=== PATIENT | male | born 1965 | race Caucasian/White ===

== ENCOUNTER 2017-07-15 15:53 | Emergency (ER) | payer MEDICARE, MEDICAID ==
[2017-07-15] MEDS ORDERED: ONDANSETRON HCL INJ/PF 4 MG/2 ML SDV IV ONE (16:15)
--- NOTE | 2017-07-15 16:48 | ER Document Report ---
ED General - General TRAVEL OUTSIDE OF THE [place] IN LAST 30 DAYS: No <MATT WILLIS - Last Filed: 07/15/17 19:15> <DINO PRASAD - Last Filed: 07/16/17 02:49> - General Chief Complaint: ETOH Abuse Stated Complaint: POSSIBLE ETOH Time Seen by Provider: 07/15/17 15:59 - HPI Notes: Patient is a 51-year-old male with a history of alcohol abuse and dependency who presents to the ED complaining of nausea/vomiting 1 day along with chronic pain. Pt also c/o body pain from his chest to his legs, but he usually has this pain which is why he was in pain management in the past. Pt c/o a headache s/p fall hitting his forehead. Patient states that he has been drinking vodka that is 100 proof and has drank more than 1/5. Patient was found sleeping on his cooler outside of the [employer]. EMS was called and he was brought to the ED. Patient states that he is on Belbuca for his chronic pain. Patient also has a history of diabetes which he takes metformin for. Denies any headache, fever, neck pain/stiffness, URI, sore throat, palpitations, syncope, shortness of breath, wheeze, dyspnea, urinary retention, dysuria, hematuria, loss of control of bowel or bladder, numbness/tingling, saddle anesthesia, muscle paralysis/weakness, or rash. Patient denies any smoking or drug use. Pt has a h/o seizures in the past. about 3 hours later: Pt is more communicative and states that he called EMS because he had blood in his vomit and has been having bloody stools x1-2 days. (MATT WILLIS) - Related Data Allergies/Adverse Reactions: Sulfa (Sulfonamide Antibiotics) Allergy (Severe, Verified 07/09/16 09:30) Past Medical History - Social History Smoking Status: Never Smoker Family History: COPD - Past Medical History Cardiac Medical History: Reports: Hx DVT - Possible DVT, right lower extremity, 1988; took Coumadin for several months, Hx Hypercholesterolemia, Hx Hypertension Denies: Hx Congestive Heart Failure, Hx Heart Attack, Hx Pulmonary Embolism Pulmonary Medical History: Reports: Hx Asthma - Childhood; has not bothered him in years. Denies: Hx COPD Neurological Medical History: Reports: Hx Cerebrovascular Accident, Hx Seizures - From alcohol withdrawal Endocrine Medical History: Reports: Hx Diabetes Mellitus Type 2. Denies: Hx Diabetes Mellitus Type 1, Hx Hyperthyroidism, Hx Hypothyroidism GI Medical History: Reports: Hx Gastroesophageal Reflux Disease, Hx Ulcer - Alcoholic. Denies: Hx Cirrhosis, Hx Hepatitis Musculoskeltal Medical History: Reports Hx Arthritis Skin Medical History: Denies Hx Eczema, Denies Hx Psoriasis Psychiatric Medical History: Reports: Hx Depression Infectious Medical History: Denies: Hx Hepatitis Past Surgical History: Reports: Hx Orthopedic Surgery - R knee R foot R wrist., Hx Vascular Surgery - Vein stripping of his right leg. - Immunizations Hx Diphtheria, Pertussis, Tetanus Vaccination: Yes <MATT WILLIS - Last Filed: 07/15/17 19:15> Review of Systems <MATT WILLIS - Last Filed: 07/15/17 19:15> <DINO PRASAD - Last Filed: 07/16/17 02:49> - Review of Systems Notes: REVIEW OF SYSTEMS: CONSTITUTIONAL : Denies fever, chills, or sweats. Denies recent illness. EENT: Denies eye, ear, throat, or mouth pain or symptoms. Denies nasal or sinus congestion or discharge. Denies throat, tongue, or mouth swelling or difficulty swallowing. CARDIOVASCULAR: Denies palpitations or racing or irregular heart beat. Denies ankle edema. RESPIRATORY: Denies shortness of breath, difficulty breathing, or wheezing. GASTROINTESTINAL: see hpi GENITOURINARY: Denies difficulty urinating, painful urination, burning, frequency, blood in urine, or discharge. MUSCULOSKELETAL: chronic see hpi SKIN: Denies rash, lesions or sores. HEMATOLOGIC : Denies easy bruising or bleeding. LYMPHATIC: Denies swollen, enlarged glands. NEUROLOGICAL: Denies confusion or altered mental status. Denies passing out or loss of consciousness. Denies dizziness or lightheadedness. Denies headache. Denies weakness or paralysis or loss of use of either side. Denies problems with gait or speech. Denies sensory loss, numbness, or tingling. Denies seizures. PSYCHIATRIC: Denies anxiety or stress. Denies depression, suicidal ideation, or homicidal ideation. ALL OTHER SYSTEMS REVIEWED AND NEGATIVE. Dictation was performed using [employer] voice recognition software (MATT WILLIS) Physical Exam <MATT WILLIS - Last Filed: 07/15/17 19:15> <DINO PRASAD - Last Filed: 07/16/17 02:49> - Vital signs Vitals: Temp Resp 97.6 F 18 07/15/17 16:00 07/15/17 16:00 Notes: PHYSICAL EXAMINATION: GENERAL: Well-appearing, well-nourished and in no acute distress. A&Ox3 HEAD: Atraumatic, normocephalic. Non-tender. No masters sign. EYES: Pupils equal round and reactive to light, extraocular movements intact, sclera anicteric, conjunctiva are normal. ENT: EAC clear b/l. TM's intact b/l without erythema, fluid, or perforation. Nares patent and without discharge. oropharynx clear without exudates. No tonsilar hypertrophy or erythema. Moist mucous membranes. No sinus tenderness. Uvula midline. No palatine shift. No tongue protrusion. NECK: Normal range of motion, supple without lymphadenopathy. No rigidity/ meningismus. No midline tenderness. Spurling neg. LUNGS: Breath sounds clear to auscultation bilaterally and equal. No wheezes rales or rhonchi. HEART: Regular rate and rhythm without murmurs, rubs, gallops. ABDOMEN: Soft, nondistended abdomen. No guarding, no rebound. No masses appreciated. Normal bowel sounds present. No CVA tenderness bilaterally. Generalized mild tenderness. Musculoskeletal: Ext b/l: FROM to passive/active. Strength 5+/5. No focal deficits noted. Extremities: Trace pitting edema b/l. Peripheral pulses 2+. Capillary refill less than 3 seconds. NEUROLOGICAL: MMSE intact. Cranial nerves grossly intact. slightly slurred speech, normal gait. Normal sensory, motor exams PSYCH: pt appears drunk, but is coherent and responds appropriately when asked. SKIN: Warm, Dry, normal turgor, no rashes or lesions noted. (MATT WILLIS) Course - Laboratory Result Diagrams: 07/15/17 17:15 07/15/17 17:15 <MATT WILLIS - Last Filed: 07/15/17 19:15> - Laboratory Result Diagrams: 07/15/17 17:15 07/15/17 17:15 <DINO PRASAD - Last Filed: 07/16/17 02:49> - Re-evaluation Re-evalutation: 07/15/17 19:[address] Flwoers who is in agreement with discharge/plan pending response to treatment: Patient is an afebrile, well-hydrated, 51yo male who presents with ETOH intoxication with chronic alcohol dependency. Vitals are stable. PE otherwise unremarkable for any focal neurological deficits at this time. CT scan of the head/neck unremarkable. CXR unremarkable. CBC at baseline. CMP at baseline. CK and CKMB mildly elevated, but most likely secondarily to the ETOH. 1st Trop/ EKG neg. INR/Ammonia unremarkable. UA, venous gas, urine drug screen, and 2nd cardiacs pending. With unremarkable labs (pending above) and decreased blood ETOH with improvement in mentation/behavior, we will discharge to home as long as he does not seem/appear intoxicated. Strict return precautions and advise recheck with his PCM in 2-3 days. Return to the ED with any worsening/ concerning symptoms. Introduced Dino Prasad PA-C at bedside who will continue care and re-evaluate patient for disposition once labs return. 07/15/17 19:13 Pt was coming around and is more communicative. Pt now admitting to blood in stool/vomit. Dino will continue care and further eval. (MATT WILLIS) I did perform a rectal exam on patient, no bleeding on exam, Hemoccult is negative. No evidence of GI bleed. Soft benign abdomen. Patient is actually quite well-appearing now, he has sobered up to the point that he is conversational and cooperative. Pending results unremarkable with negative drug screen and negative cardiac enzyme. Vital signs unremarkable. Patient tolerating p.o. Given Pepcid here and dose pack of Zofran. Patient asking to leave, states he has a ride home. Patient was picked up by his friend. (DINO PRASAD) - Vital Signs Vital signs: Temp Pulse Resp BP Pulse Ox 98.3 F 87 16 150/85 H 98 07/15/17 22:09 07/15/17 22:09 07/15/17 22:09 07/15/17 22:09 07/15/17 22:09 - Laboratory Laboratory results interpreted by me: 07/15/17 07/15/17 07/15/17 17:15 17:15 17:15 Hgb 12.6 L MCV 77 L MCH 25.1 L RDW 17.8 H Sodium 145.3 H Carbon Dioxide 21 L Glucose 144 H AST 79 H ALT 83 H Creatine Kinase 537 H CK-MB (CK-2) 5.89 H Total Protein 8.5 H Urine Protein Serum Alcohol 07/15/17 07/15/17 17:15 18:23 Hgb MCV MCH RDW Sodium Carbon Dioxide Glucose AST ALT Creatine Kinase CK-MB (CK-2) Total Protein Urine Protein 100 H Serum Alcohol 355 H* Discharge <MATT WILLIS - Last Filed: 07/15/17 19:15> <DINO PRASAD - Last Filed: 07/16/17 02:49> - Discharge Clinical Impression: Alcohol intoxication Qualifiers: Complication of substance-induced condition: uncomplicated Qualified Code(s): F10.920 - Alcohol use, unspecified with intoxication, uncomplicated Condition: Stable Disposition: HOME, SELF-CARE Instructions: Acute Alcohol Intoxication ([facility]), Chronic Alcoholism ([facility]) Additional Instructions: Maintain adequate water intake and eat a healthy diet (low carb/sugar/sodium) Seek counseling for your alcohol abuse (see A referral for detox) Monitor for any worsening symptoms Schedule a follow-up with your PCM in 2-3 days. Return to the ED with any worsening symptoms and/or development of fever, headache, changes in your mentation/speech/behavior/vision, chest pain, palpitations, syncope, shortness of breath, trouble breathing, abdominal pain, n /v/d, blood in vomit/stool/urine, loss of control of bowel/bladder, urinary retention, muscle weakness/paralysis, numbness/tingling, or other worsening symptoms that are concerning to you. Forms: Elevated Blood Pressure Referrals: MAGDIEL JOHNSON MD [Primary Care Provider] - 07/17/17 [facility] [Provider Group] - Follow up as needed
--- NOTE | 2017-07-15 16:52 | RADIOLOGY REPORT (SQ) ---
EXAM DESCRIPTION: CHEST SINGLE VIEW COMPLETED DATE/TIME: 07/15/2017 4:45 pm REASON FOR STUDY: cough COMPARISON: 09/26/2016 EXAM PARAMETERS: NUMBER OF VIEWS: One view. TECHNIQUE: Single frontal radiographic view of the chest acquired. RADIATION DOSE: NA LIMITATIONS: Low lung volumes. FINDINGS: LUNGS AND PLEURA: No opacities, masses or pneumothorax. No pleural effusion. MEDIASTINUM AND HILAR STRUCTURES: No masses. Contour normal. HEART AND VASCULAR STRUCTURES: Stable in appearance. BONES: No acute findings. HARDWARE: None in the chest. OTHER: No other significant finding. IMPRESSION: Negative chest allowing for low lung volumes. TECHNICAL DOCUMENTATION: JOB ID: [id number]
[2017-07-15 17:26] LABS: ABSOLUTE BASOPHILS # (AUTO) 0.1 10^3/uL (0.0-0.2); ABSOLUTE EOSINOPHILS # (AUTO) 0.1 10^3/uL (0.0-0.6); ABSOLUTE LYMPHOCYTES (AUTO) 1.6 10^3/uL (0.5-4.7); ABSOLUTE MONOCYTES (AUTO) 0.5 10^3/uL (0.1-1.4); ABSOLUTE NEUT (AUTO) 2.6 10^3/uL (1.7-8.2); BASOPHILS % (AUTO) 1.2 % (0-2); EOSINOPHILS % (AUTO) 1.8 % (0-6); HEMATOCRIT 38.5 % (37.9-51.0); HEMOGLOBIN 12.6 g/dL (13.5-17.0); HGB HCT DIFFERENCE -0.7; LYMPHOCYTES % (AUTO) 32.5 % (13-45); MEAN CORPUSCULAR HEMOGLOBIN 25.1 pg (27.0-33.4); MEAN CORPUSCULAR HGB CONC 32.7 g/dL (32.0-36.0); MEAN CORPUSCULAR VOLUME 77 fl (80-97); RED BLOOD COUNT 5.01 10^6/uL (4.35-5.55); RED CELL DISTRIBUTION WIDTH 17.8 % (11.5-14.0); SEGMENTED NEUTROPHILS % (AUTO) 53.5 % (42-78); WHITE BLOOD COUNT 4.8 10^3/uL (4.0-10.5)
[2017-07-15 17:42] LABS: ALANINE AMINOTRANSFERASE 83 U/L (21-72); ALBUMIN 4.7 g/dL (3.5-5.0); ALKALINE PHOSPHATASE 86 U/L (38-126); ANION GAP 19 (5-19); ASPARTATE AMINO TRANSFERASE 79 U/L (17-59); BILIRUBIN,DIRECT 0.4 mg/dL (0.0-0.4); BILIRUBIN,TOTAL 0.4 mg/dL (0.2-1.3); BLOOD UREA NITROGEN 8 mg/dL (7-20); CALCIUM 9.4 mg/dL (8.4-10.2); CARBON DIOXIDE 21 mmol/L (22-30); CHLORIDE 105 mmol/L (98-107); CREATINE KINASE 537 U/L (55-170); CREATININE RESULT 0.72 mg/dL (0.52-1.25); GLUCOSE 144 mg/dL (75-110); MAGNESIUM 1.6 mg/dL (1.6-2.3); POTASSIUM 4.6 mmol/L (3.6-5.0); SODIUM 145.3 mmol/L (137-145); TOTAL PROTEIN 8.5 g/dL (6.3-8.2)
[2017-07-15 17:53] LABS: CREATINE KINASE MB 5.89 ng/mL (<4.55)
[2017-07-15 17:54] LABS: TROPONIN I < 0.012 ng/mL
--- NOTE | 2017-07-15 17:55 | RADIOLOGY REPORT (SQ) ---
EXAM DESCRIPTION: CT CERVICAL SPINE WITHOUT COMPLETED DATE/TIME: 07/15/2017 5:35 pm REASON FOR STUDY: fall, ETOH intox COMPARISON: 07/19/2016. TECHNIQUE: Axial images acquired through the cervical spine without intravenous contrast. Images re viewed with lung, soft tissue and bone windows. Reconstructed coronal and sagittal MPR images review ed. Images stored on PACS. All CT scanners at this facility use dose modulation, iterative reconstruction, and/or weight based d osing when appropriate to reduce radiation dose to as low as reasonably achievable (ALARA). [facility]: Dose Right [facility]: CareDose [facility]: Dose Right [facility]: Teradose 4D [facility]: [employer] RADIATION DOSE: Up-to-date CT equipment and radiation dose reduction techniques were employed. CTDIv ol: 33.4 mGy. DLP: 781 mGy-cm. mGy. LIMITATIONS: None. FINDINGS: ALIGNMENT: Anatomic. MINERALIZATION: Normal. VERTEBRAL BODIES: No fractures or dislocation. DISCS: Multilevel disc space narrowing with osteophytes. FACETS, LATERAL MASSES, POSTERIOR ELEMENTS: Facet arthropathy. No fractures. No dislocation. No ac clarence findings. HARDWARE: None in the spine. VISUALIZED RIBS: No fractures. LUNG APICES AND SOFT TISSUES: No significant or acute findings. OTHER: No other significant finding. IMPRESSION: CHRONIC DEGENERATIVE CHANGES. NO ACUTE FINDINGS. TECHNICAL DOCUMENTATION: JOB ID: [id number] Quality ID # [id number]: Final reports with documentation of one or more dose reduction techniques (e.g., Au tomated exposure control, adjustment of the mA and/or kV according to patient size, use of iterative reconstruction technique) 2010 [employer]- All Rights Reserved
--- NOTE | 2017-07-15 17:56 | RADIOLOGY REPORT (SQ) ---
EXAM DESCRIPTION: CT HEAD WITHOUT COMPLETED DATE/TIME: 07/15/2017 5:33 pm REASON FOR STUDY: fall, ETOH intox COMPARISON: 09/03/2016. TECHNIQUE: Axial images acquired through the brain without intravenous contrast. Images reviewed wi th bone, brain and subdural windows. Images stored on PACS. All CT scanners at this facility use dose modulation, iterative reconstruction, and/or weight based d osing when appropriate to reduce radiation dose to as low as reasonably achievable (ALARA). [facility]: Dose Right [facility]: CareDose [facility]: Dose Right [facility]: Teradose 4D [facility]: [employer] RADIATION DOSE: Up-to-date CT equipment and radiation dose reduction techniques were employed. CTDIv ol: 64.6 mGy. DLP: 1163 mGy-cm. mGy. LIMITATIONS: None. FINDINGS: VENTRICLES: Prominent. CEREBRUM: No masses. No hemorrhage. No midline shift. Areas of low density in the white matter mos t likely due to chronic micro-vascular ischemic change. No evidence for acute infarction. CEREBELLUM: No masses. No hemorrhage. No alteration of density. No evidence for acute infarction. EXTRAAXIAL SPACES: Mild age-related involutional change. No fluid collections. No masses. ORBITS AND GLOBE: No intra- or extraconal masses. Normal contour of globe without masses. CALVARIUM: No fracture. PARANASAL SINUSES: No fluid or mucosal thickening. SOFT TISSUES: No mass or hematoma. OTHER: No other significant finding. IMPRESSION: MILD CHRONIC CHANGES OF ATROPHY AND MICROVASCULAR ISCHEMIA. NO ACUTE PROCESS. TECHNICAL DOCUMENTATION: JOB ID: [id number] Quality ID # [id number]: Final reports with documentation of one or more dose reduction techniques (e.g., Au tomated exposure control, adjustment of the mA and/or kV according to patient size, use of iterative reconstruction technique) 2010 [employer]- All Rights Reserved
[2017-07-15] MEDS: NORMAL SALINE 1000 ML 1,000 ML IV PRN ×2 (17:59→18:45)
[2017-07-15 19:09] LABS: PROTHROMBIN TIME 13.4 SEC (11.4-15.4)
--- NOTE | 2017-07-15 19:15 | EKG REPORT ---
SEVERITY:- ABNORMAL ECG - SINUS RHYTHM NONSPECIFIC INTRAVENTRICULAR CONDUCTION DELAY : Confirmed by: Sandro Hager MD 15-Jul-2017 19:14:25
[2017-07-15 19:44] LABS: APPEARANCE,URINE CLEAR; BILIRUBIN,URINE NEGATIVE (NEGATIVE); GLUCOSE, URINE NEGATIVE (NEGATIVE); KETONES,URINE NEGATIVE (NEGATIVE); LEUKOCYTE ESTERASE,URINE NEGATIVE (NEGATIVE); NITRITE,URINE NEGATIVE (NEGATIVE); PROTEIN,URINE 100 mg/dL (NEGATIVE); URINE SPECIFIC GRAVITY 1.005; UROBILINOGEN,URINE NEGATIVE mg/dL (<2.0)
[2017-07-15 19:58] LABS: URINE BARBITURATES SCREEN NEGATIVE; URINE METHADONE SCREEN NEGATIVE; URINE OPIATES LOW NEGATIVE; URINE PHENCYCLIDINE SCREEN NEGATIVE
[2017-07-15] MEDS ORDERED: FAMOTIDINE 20 MG TABLET PO ONE (21:23)
[2017-07-15] MEDS ORDERED: ONDANSETRON ODT 4 MG TAB (6 TAB/DSPK) PO PRN (21:36)
[2017-07-15 22:10] VITALS: BP 150/85
== END 2017-07-15 22:29 | disposition home or self-care (01) ==
LOC: ER 15:53
DX: F10.920 Alcohol use, unspecified with intoxication, uncomplicated (principal); R11.2 Nausea with vomiting, unspecified; G89.29 Other chronic pain; M79.1 Myalgia; R51 Headache; W19.XXXA Unspecified fall, initial encounter; E11.9 Type 2 diabetes mellitus without complications; K21.9 Gastro-esophageal reflux disease without esophagitis; Z86.718 Personal history of other venous thrombosis and embolism; Z86.73 Personal history of transient ischemic attack (TIA), and cerebral infarction without residual deficits
CPT/HCPCS: 93005; 99285; 96361; 96374; 36415; 82553; 80307 ×2; 82140; 82550; 83735; 85025; 85610; 82272; 80053; 81001; 84484; 71010; 70450; 72125; 93010; A9270; J2405; J7030

== ENCOUNTER 2017-07-16 00:08 | Emergency (ER) | payer MEDICARE, MEDICAID ==
[2017-07-16] MEDS ORDERED: ONDANSETRON HCL INJ/PF 4 MG/2 ML SDV IV ONE (01:37)
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
[2017-07-16 02:23] LABS: ABSOLUTE EOSINOPHILS # (AUTO) 0.1 10^3/uL (0.0-0.6); ABSOLUTE LYMPHOCYTES (AUTO) 1.3 10^3/uL (0.5-4.7); ABSOLUTE MONOCYTES (AUTO) 0.7 10^3/uL (0.1-1.4); ABSOLUTE NEUT (AUTO) 3.5 10^3/uL (1.7-8.2); BASOPHILS % (AUTO) 0.8 % (0-2); EOSINOPHILS % (AUTO) 1.4 % (0-6); HEMATOCRIT 37.3 % (37.9-51.0); HEMOGLOBIN 11.7 g/dL (13.5-17.0); HGB HCT DIFFERENCE -2.2; LYMPHOCYTES % (AUTO) 22.8 % (13-45); MEAN CORPUSCULAR HEMOGLOBIN 24.4 pg (27.0-33.4); MEAN CORPUSCULAR HGB CONC 31.2 g/dL (32.0-36.0); MEAN CORPUSCULAR VOLUME 78 fl (80-97); RED BLOOD COUNT 4.78 10^6/uL (4.35-5.55); RED CELL DISTRIBUTION WIDTH 17.9 % (11.5-14.0); WHITE BLOOD COUNT 5.5 10^3/uL (4.0-10.5)
[2017-07-16 02:38] LABS: ALANINE AMINOTRANSFERASE 76 U/L (21-72); ALBUMIN 4.3 g/dL (3.5-5.0); ALCOHOL 182 mg/dL (NONE DETECTED); ALKALINE PHOSPHATASE 69 U/L (38-126); ANION GAP 16 (5-19); ASPARTATE AMINO TRANSFERASE 58 U/L (17-59); BILIRUBIN,DIRECT 0.4 mg/dL (0.0-0.4); BILIRUBIN,TOTAL 0.5 mg/dL (0.2-1.3); BLOOD UREA NITROGEN 9 mg/dL (7-20); CALCIUM 8.7 mg/dL (8.4-10.2); CARBON DIOXIDE 25 mmol/L (22-30); CHLORIDE 103 mmol/L (98-107); CREATININE RESULT 0.86 mg/dL (0.52-1.25); GLUCOSE 152 mg/dL (75-110); POTASSIUM 4.6 mmol/L (3.6-5.0); SODIUM 143.7 mmol/L (137-145); TOTAL PROTEIN 7.8 g/dL (6.3-8.2)
[2017-07-16] MEDS ORDERED: LORAZEPAM 1 MG TABLET PO ONE ×2 (05:30→13:07)
--- NOTE | 2017-07-16 07:57 | EKG REPORT ---
SEVERITY:- ABNORMAL ECG - SINUS RHYTHM IVCD, CONSIDER ATYPICAL RBBB : Confirmed by: Sandro Hager MD 16-Jul-2017 07:57:02
[2017-07-16 14:07] VITALS: BP 186/89
--- NOTE | 2017-07-16 14:10 | ER Document Report ---
ED Psych Disorder / Suicide - General Chief Complaint: Alcohol Withdrawl Stated Complaint: TREMORS Time Seen by Provider: 07/16/17 01:27 TRAVEL OUTSIDE OF THE [place] IN LAST 30 DAYS: No - HPI Notes: His mother kicked him out of her house 2 weeks ago. He has been Surfing and sleeping outside in the [place]. He has no place to go. He thinks he would be better off ending his life. He thought about taking too many of his opiate pain medication. Chart review conducted: Patient had been discharged, was waiting for a ride to be arranged, nurse came to me and told me patient wants to speak to me again. I spoke to patient again , states that he feels hopeless, he has thought about suicide, he wants to speak to a psychiatrist. He states he does not "have the guts" to kill himself but he feels that he needs to speak to somebody because he does not like how he is feeling. He states he wants to stand talk to psychiatry. Patient is medically cleared. Patient disclosed that he tried to get information on detox yesterday however started to go through withdrawals so ended up at [facility]. He continued disclosed that he was vomiting and had the "shakes and shimmies." Patient reported he has had hallucinations in the past from withdrawal and states this occurred again. He disclosed currently he is seeing black spots. Patient stated he drinks so much because he is always in pain; "drinking has distroyed my life but I still drink." Patient continued to disclose "this morning I shouldn't have said what I said, I just didn't know what to do." Patient confirmed that he does not take his medications that were prescribed for mental health calling them "crazy pills" and that he did not fill the prescription because he did not like them. He continued to disclose he has been inpatient substance abuse treatment multiple times to include 4 times at [facility] and once in the [place]. Patient does not have any outpatient mental health or substance abuse providers. Behavior health team spoke with patient's mother she disclosed the patient is no longer able to stay with her. She continued disclosed the patient did not make appointments and has since has lost Medicaid. Patient is alert and orientated to person place time and circumstance. Mood is euthymic with congruent affect. Patient endorses passive suicidal ideation no true plan, means or intent. Patient denies homicidal ideation. Patient endorses some visual illusions stemming from detox. Patient denies auditory visual hallucinations. Delusions were absent and behavior is congruent with an intact reality based presentation (i.e. organized, linear thinking). Eye contact was well-maintained. Conversational speech was within normal rate tone and prosody. Intellectual abilities appear to be within average range. Attention and concentration were good. Insight, judgment, impulse control are historically poor due to substance abuse. 303.90 (F10.20) alcohol use disorder; severe per history Impression\\plan: Patient is considered psychiatrically clear for discharge. Patient does not meet IVC criteria per [place] GS 120 2C. Patient suffers from passive suicidal ideation. Delusions were absent and behavior is congruent with intact reality based presentation (i.e. organized linear thinking). This patient has been seen multiple times in this department and is well known to this clinician, he has been seen on multiple occasions for similar etiology. Patient has been provided outpatient resources for both substance abuse and economic assistance. Patient is recommended to follow-up with outpatient services for substance abuse. Dr. Mujica was consulted on the care and management of this patient; attending physician is in agreement with recommendations and disposition. - Related Data Allergies/Adverse Reactions: Sulfa (Sulfonamide Antibiotics) Allergy (Severe, Verified 07/16/17 11:57) Past Medical History - General Information source: Patient - Social History Smoking Status: Former Smoker Chew tobacco use (# tins/day): No Frequency of alcohol use: Heavy Drug Abuse: None Lives with: Friend Family History: COPD - Past Medical History Cardiac Medical History: Reports: Hx DVT - Possible DVT, right lower extremity, 1988; took Coumadin for several months, Hx Hypercholesterolemia, Hx Hypertension Denies: Hx Congestive Heart Failure, Hx Heart Attack, Hx Pulmonary Embolism Pulmonary Medical History: Reports: Hx Asthma - Childhood; has not bothered him in years. Denies: Hx COPD Neurological Medical History: Reports: Hx Cerebrovascular Accident, Hx Seizures - From alcohol withdrawal Endocrine Medical History: Reports: Hx Diabetes Mellitus Type 2. Denies: Hx Diabetes Mellitus Type 1, Hx Hyperthyroidism, Hx Hypothyroidism Renal/ Medical History: Denies: Hx Peritoneal Dialysis GI Medical History: Reports: Hx Gastroesophageal Reflux Disease, Hx Ulcer - Alcoholic. Denies: Hx Cirrhosis, Hx Hepatitis Musculoskeltal Medical History: Reports Hx Arthritis Skin Medical History: Denies Hx Eczema, Denies Hx Psoriasis Psychiatric Medical History: Reports: Hx Depression Infectious Medical History: Denies: Hx Hepatitis Past Surgical History: Reports: Hx Orthopedic Surgery - R knee R foot R wrist., Hx Vascular Surgery - Vein stripping of his right leg. - Immunizations Hx Diphtheria, Pertussis, Tetanus Vaccination: Yes Physical Exam - Vital signs Vitals: Temp Pulse Resp BP Pulse Ox 98.6 F 105 H 18 159/91 H 99 07/16/17 00:16 07/16/17 00:16 07/16/17 00:16 07/16/17 00:16 07/16/17 00:16 Course - Vital Signs Vital signs: Temp Pulse Resp BP Pulse Ox 98.6 F 105 H 13 160/92 H 97 07/16/17 00:16 07/16/17 00:16 07/16/17 06:31 07/16/17 09:01 07/16/17 10:00 - Laboratory Result Diagrams: 07/16/17 02:00 07/16/17 02:00 Laboratory results interpreted by me: 07/16/17 07/16/17 02:00 02:00 Hgb 11.7 L Hct 37.3 L MCV 78 L MCH 24.4 L MCHC 31.2 L RDW 17.9 H Glucose 152 H ALT 76 H Discharge - Discharge Clinical Impression: Alcohol abuse Condition: Stable Disposition: HOME, SELF-CARE Additional Instructions: No indication of withdrawal symptoms during we both agree that you need to stop drinking alcohol. Your stay here tonight. As discussed, begin Librium to perform self detox. You do have the alternative of following up with [facility] to get placed in detox to perform this. See details on potential withdrawal symptoms below. Return to emergency department for any concerning symptoms. Alcohol Withdrawal Your symptoms are caused by alcohol withdrawal. After a period of frequent drinking, the brain and body are changed by the alcohol. When you quit or reduce your drinking, the nervous system becomes unstable. Withdrawal symptoms can start a few hours after your last drink, but sometimes don't begin until a couple of days later. Symptoms can include shakiness, sweating, insomnia, nausea , vomiting, fearfulness, hallucinations, and seizures. In addition to the acute effects of alcohol withdrawal, we often have to deal with the medical effects of alcoholism. These problems often include dehydration, stomach irritation, intestinal bleeding, low blood sugar, liver disease, and pancreas inflammation. Treatment for alcohol withdrawal includes mild sedatives, vitamins, and fluids. You need to be with someone who can help if symptoms become severe. Many patients can withdraw at home. Admission to the hospital or a detox facility may be necessary if withdrawal symptoms are severe and uncontrollable. Abstaining from alcohol is the only effective long-term treatment. If you start drinking again, you will not be able to control yourself after the first drink. Treatment programs are available. In addition, many alcoholics benefit from Alcoholics Anonymous or other support groups available through your counselor or mandaen assistant executive housekeeper. [facility] and [facility] are support groups for friends and family members of an alcoholic. Go to the emergency room if you develop persistent vomiting, severe abdominal pain, fever, shortness of breath, hallucinations, uncontrollable tremors, or seizures. Prescriptions: Chlordiazepoxide HCl [Librium 25 mg Capsule] 1 cap PO ASDIR PRN #25 capsule PRN Reason: Referrals: [facility] [Outside] - Follow up in 3-5 days
== END 2017-07-16 14:40 | disposition home or self-care (01) ==
LOC: ER 00:08
DX: F10.239 Alcohol dependence with withdrawal, unspecified (principal); R25.1 Tremor, unspecified; Z87.891 Personal history of nicotine dependence
CPT/HCPCS: 93005; 99285; 96374; 36415; 80307; 85025; 80053; 93010; A9270; J2405

== ENCOUNTER 2017-12-02 11:38 | Emergency (ER) | payer MEDICARE, MEDICAID ==
--- NOTE | 2017-12-02 13:17 | EKG REPORT ---
SEVERITY:- ABNORMAL ECG - SINUS TACHYCARDIA INCOMPLETE RIGHT BUNDLE BRANCH BLOCK : Confirmed by: Leticia Irby MD 02-Dec-2017 13:16:53
[2017-12-02] MEDS ORDERED: ONDANSETRON HCL 8 MG TABLET PO ONE (13:26)
[2017-12-02 13:39] LABS: ABSOLUTE LYMPHOCYTES (AUTO) 1.4 10^3/uL (0.5-4.7); ABSOLUTE MONOCYTES (AUTO) 0.3 10^3/uL (0.1-1.4); ABSOLUTE NEUT (AUTO) 2.9 10^3/uL (1.7-8.2); BASOPHILS % (AUTO) 0.6 % (0-2); EOSINOPHILS % (AUTO) 0.4 % (0-6); HEMATOCRIT 41.6 % (37.9-51.0); HEMOGLOBIN 13.7 g/dL (13.5-17.0); LYMPHOCYTES % (AUTO) 30.8 % (13-45); MEAN CORPUSCULAR HEMOGLOBIN 25.4 pg (27.0-33.4); MEAN CORPUSCULAR HGB CONC 32.9 g/dL (32.0-36.0); MEAN CORPUSCULAR VOLUME 77 fl (80-97); PLATELET COUNT 221 10^3/uL (150-450); RED BLOOD COUNT 5.37 10^6/uL (4.35-5.55); RED CELL DISTRIBUTION WIDTH 18.5 % (11.5-14.0); SEGMENTED NEUTROPHILS % (AUTO) 61.2 % (42-78); TOTAL CELLS COUNTED % (AUTO) 100 %; WHITE BLOOD COUNT 4.7 10^3/uL (4.0-10.5)
[2017-12-02 13:58] LABS: ALANINE AMINOTRANSFERASE 94 U/L (21-72); ALBUMIN 4.6 g/dL (3.5-5.0); ALKALINE PHOSPHATASE 73 U/L (38-126); ANION GAP 19 (5-19); ASPARTATE AMINO TRANSFERASE 102 U/L (17-59); BILIRUBIN,DIRECT 0.4 mg/dL (0.0-0.4); BILIRUBIN,TOTAL 0.9 mg/dL (0.2-1.3); BLOOD UREA NITROGEN 14 mg/dL (7-20); CALCIUM 9.2 mg/dL (8.4-10.2); CARBON DIOXIDE 23 mmol/L (22-30); CHLORIDE 99 mmol/L (98-107); GLUCOSE 140 mg/dL (75-110); POTASSIUM 4.2 mmol/L (3.6-5.0); SODIUM 141.2 mmol/L (137-145); TOTAL PROTEIN 7.9 g/dL (6.3-8.2)
[2017-12-02 14:05] LABS: ACETAMINOPHEN < 10 ug/mL (10-30); SALICYLATE < 1.0 mg/dL (2.0-20.0)
[2017-12-02 14:06] LABS: ALCOHOL 322 mg/dL (NONE DETECTED)
[2017-12-02 14:27] LABS: APPEARANCE,URINE CLEAR; BILIRUBIN,URINE NEGATIVE (NEGATIVE); COLOR,URINE YELLOW; GLUCOSE, URINE NEGATIVE (NEGATIVE); KETONES,URINE NEGATIVE (NEGATIVE); LEUKOCYTE ESTERASE,URINE NEGATIVE (NEGATIVE); NITRITE,URINE NEGATIVE (NEGATIVE); PROTEIN,URINE >=500 mg/dL (NEGATIVE)
[2017-12-02 14:43] LABS: URINE AMPHETAMINES SCREEN NEGATIVE; URINE BARBITURATES SCREEN NEGATIVE; URINE BENZODIAZEPINES SCREEN NEGATIVE; URINE COCAINE SCREEN NEGATIVE; URINE MARIJUANA (THC) SCREEN NEGATIVE; URINE METHADONE SCREEN NEGATIVE; URINE PHENCYCLIDINE SCREEN NEGATIVE
--- NOTE | 2017-12-02 15:08 | ER Document Report ---
ED General - General Chief Complaint: ETOH Abuse Stated Complaint: POSSIBLE ETOH Time Seen by Provider: 12/02/17 12:05 Mode of Arrival: Medic Information source: Patient Notes: 52-year-old male chronic alcoholic presents with complaints of alcohol intoxication. Patient notes he drank excessively because he wanted to end it. He notes that he goes through episodes of sobriety and then binge drinking Patient denies any previous suicidal ideations TRAVEL OUTSIDE OF THE [place] IN LAST 30 DAYS: No - HPI Onset: Just prior to arrival Onset/Duration: Sudden Quality of pain: No pain Severity: Mild Pain Level: Denies Associated symptoms: Other - Intoxicated Exacerbated by: Denies Relieved by: Denies Similar symptoms previously: No Recently seen / treated by doctor: No - Related Data Allergies/Adverse Reactions: Sulfa (Sulfonamide Antibiotics) Allergy (Severe, Verified 07/16/17 11:57) Past Medical History - Social History Smoking Status: Never Smoker Cigarette use (# per day): No Chew tobacco use (# tins/day): No Smoking Education Provided: No Frequency of alcohol use: Heavy Drug Abuse: None Family History: Reviewed & Not Pertinent, COPD Patient has suicidal ideation: Yes Patient has homicidal ideation: No - Past Medical History Cardiac Medical History: Reports: Hx DVT - Possible DVT, right lower extremity, 1988; took Coumadin for several months, Hx Hypercholesterolemia, Hx Hypertension Denies: Hx Congestive Heart Failure, Hx Heart Attack, Hx Pulmonary Embolism Pulmonary Medical History: Reports: Hx Asthma - Childhood; has not bothered him in years. Denies: Hx COPD Neurological Medical History: Reports: Hx Cerebrovascular Accident, Hx Seizures - From alcohol withdrawal Endocrine Medical History: Reports: Hx Diabetes Mellitus Type 2. Denies: Hx Diabetes Mellitus Type 1, Hx Hyperthyroidism, Hx Hypothyroidism Renal/ Medical History: Denies: Hx Peritoneal Dialysis GI Medical History: Reports: Hx Gastroesophageal Reflux Disease, Hx Ulcer - Alcoholic. Denies: Hx Cirrhosis, Hx Hepatitis Musculoskeltal Medical History: Reports Hx Arthritis Skin Medical History: Denies Hx Eczema, Denies Hx Psoriasis Psychiatric Medical History: Reports: Hx Depression Infectious Medical History: Denies: Hx Hepatitis Past Surgical History: Reports: Hx Orthopedic Surgery - R knee R foot R wrist., Hx Vascular Surgery - Vein stripping of his right leg. - Immunizations Hx Diphtheria, Pertussis, Tetanus Vaccination: Yes Review of Systems - Review of Systems Notes: REVIEW OF SYSTEMS: CONSTITUTIONAL : Denies fever, chills, or sweats. Denies recent illness. EENT: Denies eye, ear, throat, or mouth pain or symptoms. Denies nasal or sinus congestion or discharge. Denies throat, tongue, or mouth swelling or difficulty swallowing. CARDIOVASCULAR: Denies chest pain. Denies palpitations or racing or irregular heart beat. Denies ankle edema. RESPIRATORY: Denies cough, cold, or chest congestion. Denies shortness of breath, difficulty breathing, or wheezing. GASTROINTESTINAL: Denies abdominal pain or distention. Denies nausea, vomiting , or diarrhea. Denies blood in vomitus, stools, or per rectum. Denies black, tarry stools. Denies constipation. GENITOURINARY: Denies difficulty urinating, painful urination, burning, frequency, blood in urine, or discharge. MUSCULOSKELETAL: Denies back or neck pain or stiffness. Denies joint pain or swelling. SKIN: Denies rash, lesions or sores. HEMATOLOGIC : Denies easy bruising or bleeding. LYMPHATIC: Denies swollen, enlarged glands. NEUROLOGICAL: is intoxicated PSYCHIATRIC: Suicidal ideations ALL OTHER SYSTEMS REVIEWED AND NEGATIVE. Dictation was performed using [employer] voice recognition software PHYSICAL EXAMINATION: GENERAL: Intoxicated. HEAD: Atraumatic, normocephalic. EYES: Pupils equal round and reactive to light, extraocular movements intact, sclera anicteric, conjunctiva are normal. ENT: Nares patent, oropharynx clear without exudates. Moist mucous membranes. NECK: Normal range of motion, supple without lymphadenopathy LUNGS: Breath sounds clear to auscultation bilaterally and equal. No wheezes rales or rhonchi. HEART: Regular rate and rhythm without murmurs ABDOMEN: Soft, nontender, nondistended abdomen. No guarding, no rebound. No masses appreciated. Musculoskeletal: Normal range of motion, no pitting or edema. No cyanosis. NEUROLOGICAL: Cranial nerves grossly intact. Normal speech, normal gait. Normal sensory, motor exams PSYCH: Tearful . SKIN: Warm, Dry, normal turgor, no rashes or lesions noted. Physical Exam - Vital signs Vitals: Resp 18 12/02/17 12:00 Course - Re-evaluation Re-evalutation: 12/02/17 18:34 Patient is intoxicated, I will keep him overnight to away for him to become sober Mental health requested to evaluate patient - Vital Signs Vital signs: Temp Pulse Resp BP Pulse Ox 98.5 F 112 H 20 131/95 H 93 12/02/17 12:05 12/02/17 12:05 12/02/17 12:05 12/02/17 12:05 12/02/17 12:05 - Laboratory Result Diagrams: 12/02/17 13:20 12/02/17 13:20 Laboratory results interpreted by me: 12/02/17 12/02/17 12/02/17 13:20 13:20 13:50 MCV 77 L MCH 25.4 L RDW 18.5 H Glucose 140 H AST 102 H ALT 94 H Urine Protein >=500 H Urine Blood SMALL H Urine Urobilinogen 2.0 H Salicylates < 1.0 L Acetaminophen < 10 L Serum Alcohol 322 H* Discharge - Discharge Clinical Impression: Alcohol abuse Suicidal behavior Qualifiers: Attempted self-injury: with attempted self-injury Qualified Code(s): T14.91XA - Suicide attempt, initial encounter Condition: Stable Disposition: PSYCH HOSP/UNIT Referrals: MAGDIEL JOHNSON MD [Primary Care Provider] - Follow up as needed
--- NOTE | 2017-12-02 16:11 | PSYCHOLOGICAL NOTE ---
<GERMAN PORRASRE - Last Filed: 12/02/17 15:39> Psych Note - Psych Note Psych Note: Reason for consult: Alcohol Abuse/Suicidal Ideation Consents given: None Patient is a 52 year old male who presented to the Emergency Department via EMS. He reported he started drinking about 1 1/2 weeks ago and hasn't stopped. He stated he was staying at a motel and continuously drank 100 or 127 proof liquor and would go to the liquor store when he was done with a bottle and kept buying bottle after bottle. He stated he was going to "drink until it killed me. " He reported he is tired of the "whole pattern" of becoming sober and then starting drinking again. He reported he has been in and out of programs over the past several years and this last stint of sobriety has been for approximately 7 months. He reported that in the last 20 years the longest he has been able to maintain his sobriety for is 8 months. He stated "I'm just worn out. If I could get to a bottle I'd drink to put myself down permanently." He stated a member of the cleaning staff at the motel found him and he was vomiting blood and having diarrhea with blood in it. He reported the cleaning staff went to the management and they called EMS. Patient denied any precipitating stressor for drinking this time except not being able to resist. He reported the binge drinking began three days after he took a friend to . He reported that was the first time he had been to in several years. Patient reported he is "hurting all over" and has requested Librium or Ativan to deal with his detox symptoms. Patient endorsed auditory and visual hallucinations and stated, "they will get worse when I go further into detox." Patient was alert and oriented to person, place, time and circumstance. Mood was tearful and sad with congruent affect. Patient stated he has suicidal ideation about drinking himself to but stated he wanted help to deal with detoxing. Patient denied homicidal ideation, intent or plan. He stated he is the "kind of angela that stands up and says you can't bully people or hit women. But I'm also that drunk angela." He did not appear to be responding to internal stimuli as evidenced by appropriate eye contact, maintaining conversation and staying on topic. No delusions or psychosis noted. Thought processes were organized and linear. Conversational speech was within normal limits for tone and prosody. Intellectual abilities were estimated in the average range. Insight , judgment and impulse control were poor. 1. 311 (F32.9) Unspecified Depressive Disorder, by patient report 2. 303.00 (F10.229) Alcohol Intoxication. with Use Disorder, Moderate Impression/Plan: Patient is likely psychiatrically clear but he is under the influence of alcohol with a serum alcohol level of 322. Due to the current level of intoxication, patient will be reassessed in the morning and any recommendations will be made following that evaluation. <CYNDI BARRAGAN - Last Filed: 12/03/17 09:13> Psych Note - Psych Note Psych Note: Patient has a history of seizures when detoxing from alcohol. This should be considered when assessing his status for discharge. Otherwise, he is psychiatrically clear for discharge and if in agreement, appropriate for voluntary detox at a facility of his choice.
[2017-12-02] MEDS ORDERED: ONDANSETRON 4 MG TAB.RAPDIS PO ONE (17:48)
[2017-12-02] MEDS: LORAZEPAM 1 MG TABLET PO SCH ×2 (18:06→21:52)
[2017-12-02] MEDS ORDERED: ONDANSETRON HCL INJ/PF 4 MG/2 ML SDV IV ONE (21:47)
[2017-12-03] MEDS ORDERED: ONDANSETRON 4 MG TAB.RAPDIS PO ONE (01:04)
[2017-12-03] MEDS ORDERED: LORAZEPAM 1 MG TABLET PO ONE (01:04)
[2017-12-03] MEDS: LORAZEPAM 1 MG TABLET PO SCH ×2 (06:27→13:58)
--- NOTE | 2017-12-03 09:54 | ER Document Report ---
Doctor's Note Notes: 12/03/17 09:54 As the rounding physician for our social patients, I have reviewed the chart, vitals, lab work. Patient has been examined and noted to be stable . I am awaiting mental health in put.
--- NOTE | 2017-12-03 10:31 | PSYCHOLOGICAL NOTE ---
Psych Note - Psych Note Psych Note: Reason for consult: Alcohol Abuse/Suicidal Ideation Consents given: None Patient stated he had a "rough night." He stated he had "the shakes and sweats. " Patient reported he felt "pins sticking me in my back." He related the sensation to pins and needles after you have a body part fall asleep. Patient stated he felt like he was still having some visual hallucinations that were reminiscent of "old movie footage, something floating in the hallway and black spots." The patient was eating breakfast when this grooving machine operator entered the room. He stated the breakfast was the first thing he has eaten "in literally a week." Patient stated he felt "beaten up." He reported this was a "difficult" detox. This grooving machine operator asked about the patient going to a facility to continue detox. Patient stated he did not want to go to a detox and he would "go home to finish detoxing." This grooving machine operator explained the benefit of detox in a facility if the patient felt the need to be monitored. The patient reiterated he wanted to be discharged home and did not want to go to a detox facility. Patient was alert and oriented to person, place, time and circumstance. Mood was euthymic with congruent affect. Patient denied active suicidal/homicidal ideation, intent or plan. He did not appear to be responding to internal stimuli as evidenced by appropriate eye contact, maintaining conversation and staying on topic. No delusions or psychosis noted. Thought processes were organized and linear. Conversational speech was within normal limits for rate, tone and prosody. Intellectual abilities were estimated in the average range. Insight, judgment and impulse control were fair. 1. 311 (F32.9) Unspecified Depressive Disorder, by patient report 2. 303.00 (F10.229) Alcohol Intoxication. with Use Disorder, Moderate Impression/Plan: Patient is psychiatrically clear. Patient denied suicidal/ homicidal ideation, intent or plan. Patient is not considered a danger to himself or others at this time. No delusions or psychosis were observed. Patient has a support system in place, with his mother, who he will be staying with subsequent to discharge from the hospital. Patient was encouraged to follow up in the community with a mental health provider. Patient was given resources for providers in the community. Patient was given resources regarding detox and rehabilitation providers to utilize and was recommended to follow up with them. Medication recommendations were made for Effexor 37.5mg BID and Clonidine 0.1mg BID. Consulted with Dr. Mujica regarding the care and management of this patient. ED physician in agreement with recommendations and disposition.
--- NOTE | 2017-12-03 11:48 | ER Document Report ---
Doctor's Note Notes: 12/03/17 11:47 I had a lengthy discussion with the patient who is awake oriented and alert and deemed to have capacity. He is stating that he is not wanting inpatient admission for detoxification but after further discussion with him his brother and his mother over the phone he states that he would be willing to go to inpatient detoxification. I stated if he chooses not to do this is not safe for him to go home and his mother agrees and states that he cannot come back to her home. Awaiting discussion with inpatient detoxification group at this time I also discussed this plan of care with our psychiatric services in the hospital 12/03/17 11:51
[2017-12-03 14:39] VITALS: BP 172/78
== END 2017-12-03 14:36 | disposition other institution (70) ==
LOC: ER 11:38
DX: T14.91XA Suicide attempt, initial encounter (principal); F10.10 Alcohol abuse, uncomplicated
CPT/HCPCS: 93005; 99285; 96374; 36415; 80307 ×4; 85025; 80053; 81001; 93010; A9270 ×5; J2405; S0119

== ENCOUNTER → 2018-08-12 | Outpatient (CLI) | payer MEDICARE, MEDICAID ==
--- NOTE | 2018-08-13 09:58 | XCELERA REPORT ---
[address] [address] Lower Extremity Venous Evaluation Procedure: A bilateral duplex scan of the lower extremity veins was performed. The evaluation included responses to compression and other maneuvers with patient in the supine and standing positions to assess venous insufficiency. Right Sided Venous Evaluation Deep venous system evaluatiion shows patent veins with no obstruction or significant reflux identified. Sapheno Femoral junction: No reflux.. Femoral vein reflux: No reflux.. Greater Saphenous vein, Proximal thigh: reflux: No reflux.. Greater Saphenous vein, mid thigh: reflux: 2 seconds.5.3 mm. Greater Saphenous vein, Proximal below knee: reflux: 2.1 seconds, 6.3 mm diameter. No significant Perforators identified. Left Sided Venous Evaluation Deep venous system evaluatiion shows patent veins with no obstruction or significant reflux identified. Sapheno Femoral junction: no reflux. Femoral vein reflux: no reflux. Greater Saphenous vein, Proximal thigh: reflux: no reflux. Greater Saphenous vein, Distal thigh: reflux: no reflux. Greater Saphenous vein, Proximal below knee: reflux: no reflux. No significant Perforators identified. Interpretation Summary No duplex evidence of DVT or obstruction in the bilateral lower extremities. Right sided superficial reflux seen, as noted above. Name: BRIANNAERWIN III Age: 52 yrs Gender: Male : 1965 Patient Status: Outpatient Patient Location: Study Date: 08/12/2018 02:43 PM Reason For Study: ULCER Ordering Physician: ABBE VINCENT Performed By: Adams Boyle : ABBE VINCENT > Abbe Vincent
== END ==
LOC: SP 14:20
PROVIDERS: ATTEND Surgery
DX: L97.222 Non-pressure chronic ulcer of left calf with fat layer exposed (principal)
CPT/HCPCS: 93970

== ENCOUNTER → 2018-08-13 | Outpatient (CLI) | payer MEDICARE, MEDICAID ==
[2018-08-12 14:30] LABS: ABSOLUTE EOSINOPHILS # (AUTO) 0.4 10^3/uL (0.0-0.6); ABSOLUTE LYMPHOCYTES (AUTO) 1.4 10^3/uL (0.5-4.7); ABSOLUTE MONOCYTES (AUTO) 0.5 10^3/uL (0.1-1.4); ABSOLUTE NEUT (AUTO) 2.7 10^3/uL (1.7-8.2); BASOPHILS % (AUTO) 0.9 % (0-2); EOSINOPHILS % (AUTO) 8.5 % (0-6); HEMATOCRIT 35.7 % (37.9-51.0); HEMOGLOBIN 11.8 g/dL (13.5-17.0); LYMPHOCYTES % (AUTO) 27.2 % (13-45); MEAN CORPUSCULAR HEMOGLOBIN 26.7 pg (27.0-33.4); MEAN CORPUSCULAR HGB CONC 33.1 g/dL (32.0-36.0); MEAN CORPUSCULAR VOLUME 81 fl (80-97); MONOCYTES % (AUTO) 9.8 % (3-13); PLATELET COUNT 382 10^3/uL (150-450); RED BLOOD COUNT 4.42 10^6/uL (4.35-5.55); RED CELL DISTRIBUTION WIDTH 14.8 % (11.5-14.0); SEGMENTED NEUTROPHILS % (AUTO) 53.6 % (42-78); TOTAL CELLS COUNTED % (AUTO) 100 %
[2018-08-12 14:55] LABS: ALANINE AMINOTRANSFERASE 42 U/L (21-72); ALKALINE PHOSPHATASE 42 U/L (38-126); ANION GAP 11 (5-19); ASPARTATE AMINO TRANSFERASE 32 U/L (17-59); BILIRUBIN,DIRECT 0.4 mg/dL (0.0-0.4); BILIRUBIN,TOTAL 0.5 mg/dL (0.2-1.3); BLOOD UREA NITROGEN 13 mg/dL (7-20); C-REACTIVE PROTEIN 12.2 mg/L (<10.0); CALCIUM 9.3 mg/dL (8.4-10.2); CARBON DIOXIDE 25 mmol/L (22-30); CHLORIDE 105 mmol/L (98-107); GLUCOSE 125 mg/dL (75-110); POTASSIUM 4.4 mmol/L (3.6-5.0); SODIUM 140.6 mmol/L (137-145); TOTAL PROTEIN 7.3 g/dL (6.3-8.2)
[2018-08-12 15:22] LABS: ERYTHROCYTE SEDIMENTATION RATE 32 mm/hr (0-20)
== END ==
LOC: WC 13:20
PROVIDERS: ATTEND Nurse Practitioner
DX: E11.622 Type 2 diabetes mellitus with other skin ulcer (principal); L97.222 Non-pressure chronic ulcer of left calf with fat layer exposed
CPT/HCPCS: 36415; 80053; 83036; 85025; 85652; 86140

== ENCOUNTER → 2018-11-25 | Outpatient (CLI) | payer MEDICARE, MEDICAID ==
[2018-11-25 14:31] LABS: ABSOLUTE BASOPHILS # (AUTO) 0.1 10^3/uL (0.0-0.2); ABSOLUTE EOSINOPHILS # (AUTO) 0.2 10^3/uL (0.0-0.6); ABSOLUTE LYMPHOCYTES (AUTO) 1.2 10^3/uL (0.5-4.7); ABSOLUTE MONOCYTES (AUTO) 0.9 10^3/uL (0.1-1.4); ABSOLUTE NEUT (AUTO) 4.1 10^3/uL (1.7-8.2); BASOPHILS % (AUTO) 0.8 % (0-2); EOSINOPHILS % (AUTO) 3.8 % (0-6); HEMATOCRIT 35.6 % (37.9-51.0); HEMOGLOBIN 11.7 g/dL (13.5-17.0); LYMPHOCYTES % (AUTO) 18.2 % (13-45); MEAN CORPUSCULAR HEMOGLOBIN 26.6 pg (27.0-33.4); MEAN CORPUSCULAR VOLUME 81 fl (80-97); MONOCYTES % (AUTO) 13.5 % (3-13); PLATELET COUNT 396 10^3/uL (150-450); RED BLOOD COUNT 4.41 10^6/uL (4.35-5.55); RED CELL DISTRIBUTION WIDTH 14.6 % (11.5-14.0); SEGMENTED NEUTROPHILS % (AUTO) 63.7 % (42-78); TOTAL CELLS COUNTED % (AUTO) 100 %; WHITE BLOOD COUNT 6.5 10^3/uL (4.0-10.5)
[2018-11-25 15:00] LABS: ALANINE AMINOTRANSFERASE 46 U/L (21-72); ALBUMIN 4.6 g/dL (3.5-5.0); ALKALINE PHOSPHATASE 72 U/L (38-126); ANION GAP 9 (5-19); ASPARTATE AMINO TRANSFERASE 37 U/L (17-59); BILIRUBIN,DIRECT 0.2 mg/dL (0.0-0.4); BILIRUBIN,TOTAL 0.4 mg/dL (0.2-1.3); BLOOD UREA NITROGEN 16 mg/dL (7-20); C-REACTIVE PROTEIN 14.4 mg/L (<10.0); CALCIUM 9.5 mg/dL (8.4-10.2); CARBON DIOXIDE 26 mmol/L (22-30); CHLORIDE 103 mmol/L (98-107); GLUCOSE 104 mg/dL (75-110); POTASSIUM 4.6 mmol/L (3.6-5.0); SODIUM 138.3 mmol/L (137-145); TOTAL PROTEIN 7.6 g/dL (6.3-8.2)
[2018-11-25 15:17] LABS: ERYTHROCYTE SEDIMENTATION RATE 24 mm/hr (0-20)
--- NOTE | 2018-11-25 16:39 | RADIOLOGY REPORT (SQ) ---
EXAM DESCRIPTION: TIBIA FIBULA LEFT COMPLETED DATE/TIME: 11/25/2018 2:36 pm REASON FOR STUDY: NON-PRESSURE CHRONIC ULCER OF LEFT CALF W FAT LAYER EXPOSED E11.622 TYPE 2 DIABET ES MELLITUS WITH OTHER SKIN ULCER L97.222 NON-PRESSURE CHRONIC ULCER OF LEFT CALF W FAT LAYER COMPARISON: 09/10/2015. NUMBER OF VIEWS: Two views. TECHNIQUE: Two radiographic images acquired of the left tibia and fibula to include the knee and ank le in at least one projection. LIMITATIONS: None. FINDINGS: MINERALIZATION: Normal. BONES: No acute fracture or dislocation. Old fracture of the proximal fibula. Chronic cortical thic kening of the tibia. No worrisome bone lesions. No significant osteophytes. SOFT TISSUES: No obvious swelling or foreign body. OTHER: No other significant finding. IMPRESSION: STABLE CHRONIC CHANGES. NO ACUTE FINDINGS. TECHNICAL DOCUMENTATION: JOB ID: [id number] [employer]- All Rights Reserved Reading location - IP/workstation name: [email or web address]
== END ==
LOC: WC 13:50
PROVIDERS: ATTEND Surgery
DX: E11.622 Type 2 diabetes mellitus with other skin ulcer (principal); L97.222 Non-pressure chronic ulcer of left calf with fat layer exposed
CPT/HCPCS: 36415; 80053; 83036; 85025; 85652; 86140

== ENCOUNTER 2019-10-22 14:29 | Emergency (ER) | payer MEDICARE, MEDICAID ==
[2019-10-22 14:49] VITALS: BP 152/79
--- NOTE | 2019-10-22 15:49 | ER Document Report ---
ED Medical Screen (RME) - General Stated Complaint: FALL/TOE INJURY Time Seen by Provider: 10/22/19 15:43 Primary Care Provider: ABBE VINCENT MD [Primary Care Provider] - Follow up as needed Information source: Patient Notes: Patient states that he was attempting to get into a chair and stumbled scuffing his toe. Patient with injury to the left great toe. Patient states that he does not want to stay here and be evaluated that he has a cab coming to pick him up. Patient denies any head injury or loss of consciousness nausea or vomiting. Patient denies any other injury. I have greeted and performed a rapid initial assessment of this patient. A comprehensive ED assessment and evaluation of the patient, analysis of test results and completion of the medical decision making process will be conducted by additional ED providers. TRAVEL OUTSIDE OF THE [place] IN LAST 30 DAYS: No - Related Data Allergies/Adverse Reactions: Sulfa (Sulfonamide Antibiotics) Allergy (Severe, Verified 10/22/19 15:41) Past Medical History - Past Medical History Cardiac Medical History: Reports: Hx DVT - Possible DVT, right lower extremity, 1988; took Coumadin for several months, Hx Hypercholesterolemia, Hx Hypertension Denies: Hx Congestive Heart Failure, Hx Heart Attack, Hx Pulmonary Embolism Pulmonary Medical History: Reports: Hx Asthma - Childhood; has not bothered him in years. Denies: Hx COPD Neurological Medical History: Reports: Hx Cerebrovascular Accident, Hx Seizures - From alcohol withdrawal Endocrine Medical History: Reports: Hx Diabetes Mellitus Type 2. Denies: Hx Diabetes Mellitus Type 1, Hx Hyperthyroidism, Hx Hypothyroidism Renal/ Medical History: Denies: Hx Peritoneal Dialysis GI Medical History: Reports: Hx Gastroesophageal Reflux Disease, Hx Ulcer - Alcoholic. Denies: Hx Cirrhosis, Hx Hepatitis Musculoskeltal Medical History: Reports Hx Arthritis Skin Medical History: Denies Hx Eczema, Denies Hx Psoriasis Psychiatric Medical History: Reports: Hx Depression Infectious Medical History: Denies: Hx Hepatitis Past Surgical History: Reports: Hx Orthopedic Surgery - R knee R foot R wrist., Hx Vascular Surgery - Vein stripping of his right leg. - Immunizations Hx Diphtheria, Pertussis, Tetanus Vaccination: Yes Physical Exam - Vital signs Vitals: Temp Resp Pulse Ox 98.5 F 15 97 10/22/19 14:30 10/22/19 14:30 10/22/19 14:30 - General General appearance: Appears well, Alert Notes: Avulsion of skin to the plantar surface of left great toe, no active bleeding Course - Re-evaluation Re-evalutation: 10/22/19 15:47 Patient presents stating that he did not want to come to the emergency department but that the ambulance forced him to. Patient denies any head injury or loss of consciousness. Patient does admit to drinking alcohol today although patient does appear to have capacity at this time to make his medical decisions. Offered patient wound care as well as x-ray at this time. Patient declines both stating that he would like to leave via cab. The patient has decided not to proceed with further recommended testing or treatment to determine the cause of her symptoms. The risk and alternatives to the recommendation were discussed the patient voiced understanding. The patient appears clinically to have the capacity to make this decision. The patient was instructed that they could return to the ER at any time to complete the testing or treatment. - Vital Signs Vital signs: Temp Pulse Resp BP Pulse Ox 98.5 F 93 15 152/79 H 97 10/22/19 14:47 10/22/19 14:47 10/22/19 14:47 10/22/19 14:47 10/22/19 14:47 Doctor's Discharge - Discharge Clinical Impression: Injury of toe on left foot Qualifiers: Encounter type: initial encounter Qualified Code(s): S99.922A - Unspecified injury of left foot, initial encounter Disposition: AGAINST MEDICAL ADVICE Referrals: ABBE VINCENT MD [Primary Care Provider] - Follow up as needed
== END 2019-10-22 15:54 | disposition left against medical advice (07) ==
LOC: ER 14:29
DX: S99.922A Unspecified injury of left foot, initial encounter (principal); W22.09XA Striking against other stationary object, initial encounter; E78.00 Pure hypercholesterolemia, unspecified; I10 Essential (primary) hypertension; E11.9 Type 2 diabetes mellitus without complications; Z88.2 Allergy status to sulfonamides
CPT/HCPCS: 99283

== ENCOUNTER 2019-10-24 04:59 | Emergency (ER) | payer MEDICARE, MEDICAID ==
[2019-10-24 10:03] LABS: ABSOLUTE BASOPHILS # (AUTO) 0.1 10^3/uL (0.0-0.2); ABSOLUTE LYMPHOCYTES (AUTO) 1.2 10^3/uL (0.5-4.7); ABSOLUTE MONOCYTES (AUTO) 0.6 10^3/uL (0.1-1.4); ABSOLUTE NEUT (AUTO) 5.2 10^3/uL (1.7-8.2); EOSINOPHILS % (AUTO) 0.6 % (0-6); HEMATOCRIT 42.8 % (37.9-51.0); HEMOGLOBIN 14.3 g/dL (13.5-17.0); LYMPHOCYTES % (AUTO) 16.9 % (13-45); MEAN CORPUSCULAR HEMOGLOBIN 27.9 pg (27.0-33.4); MEAN CORPUSCULAR HGB CONC 33.5 g/dL (32.0-36.0); MEAN CORPUSCULAR VOLUME 83 fl (80-97); MONOCYTES % (AUTO) 8.8 % (3-13); PLATELET COUNT 350 10^3/uL (150-450); RED BLOOD COUNT 5.14 10^6/uL (4.35-5.55); RED CELL DISTRIBUTION WIDTH 15.1 % (11.5-14.0); SEGMENTED NEUTROPHILS % (AUTO) 72.7 % (42-78); TOTAL CELLS COUNTED % (AUTO) 100 %; WHITE BLOOD COUNT 7.2 10^3/uL (4.0-10.5)
[2019-10-24 10:14] LABS: ALBUMIN 5.2 g/dL (3.5-5.0); ALKALINE PHOSPHATASE 120 U/L (38-126); ASPARTATE AMINO TRANSFERASE 56 U/L (17-59); BILIRUBIN,DIRECT 0.4 mg/dL (0.0-0.4); BILIRUBIN,TOTAL 0.5 mg/dL (0.2-1.3); BLOOD UREA NITROGEN 15 mg/dL (7-20); CALCIUM 9.4 mg/dL (8.4-10.2); GLUCOSE 172 mg/dL (75-110); POTASSIUM 3.7 mmol/L (3.6-5.0); TOTAL PROTEIN 9.3 g/dL (6.3-8.2)
[2019-10-24 10:19] LABS: CARBON DIOXIDE 18 mmol/L (22-30); CHLORIDE 99 mmol/L (98-107)
[2019-10-24 10:20] LABS: ANION GAP 25 (5-19)
[2019-10-24] MEDS ORDERED: LORAZEPAM INJ 2 MG/1 ML VIAL IV ONE ×3 (13:00→22:04)
[2019-10-24] MEDS ORDERED: ONDANSETRON HCL INJ/PF 4 MG/2 ML SDV IV ONE (13:00)
[2019-10-24] MEDS ORDERED: NORMAL SALINE 1000 ML 1,000 ML IV ONE (13:00)
--- NOTE | 2019-10-24 13:00 | ER Document Report ---
ED General - General Chief Complaint: ETOH Abuse Stated Complaint: ABDOMINAL PAIN Time Seen by Provider: 10/24/19 12:54 Mode of Arrival: Ambulatory Information source: Patient Notes: 54-year-old male patient presented to the emergency department via EMS with complaints of vomiting bright red blood. Patient reports he binge drinks, states last night he drank 1 gallon of vodka. He states this morning he woke up and was vomiting bright red blood. Patient denies request for detox at this cu rrent time, states he wants to be seen for the vomiting episode and also his generalized abdominal pain. Patient denies any diarrhea, fevers or any other symptoms. Patient denies any history of abdominal surgeries. TRAVEL OUTSIDE OF THE [place] IN LAST 30 DAYS: No - Related Data Allergies/Adverse Reactions: Sulfa (Sulfonamide Antibiotics) Allergy (Severe, Verified 10/22/19 15:41) Home Medications: metformin. amilodipine. losartan Past Medical History - General Information source: Patient - Social History Smoking Status: Never Smoker Frequency of alcohol use: 1/2 gallon of vodka Drug Abuse: None Family History: Reviewed & Not Pertinent, COPD Patient has suicidal ideation: No Patient has homicidal ideation: No - Past Medical History Cardiac Medical History: Reports: Hx DVT - Possible DVT, right lower extremity, 1988; took Coumadin for several months, Hx Hypercholesterolemia, Hx Hypertension Denies: Hx Congestive Heart Failure, Hx Heart Attack, Hx Pulmonary Embolism Pulmonary Medical History: Reports: Hx Asthma - Childhood; has not bothered him in years. Denies: Hx COPD Neurological Medical History: Reports: Hx Cerebrovascular Accident, Hx Seizures - From alcohol withdrawal Endocrine Medical History: Reports: Hx Diabetes Mellitus Type 2. Denies: Hx Diabetes Mellitus Type 1, Hx Hyperthyroidism, Hx Hypothyroidism Renal/ Medical History: Denies: Hx Peritoneal Dialysis GI Medical History: Reports: Hx Gastroesophageal Reflux Disease, Hx Ulcer - Alcoholic. Denies: Hx Cirrhosis, Hx Hepatitis Musculoskeletal Medical History: Reports Hx Arthritis Skin Medical History: Denies Hx Eczema, Denies Hx Psoriasis Psychiatric Medical History: Reports: Hx Depression Infectious Medical History: Denies: Hx Hepatitis Past Surgical History: Reports: Hx Orthopedic Surgery - R knee R foot R wrist., Hx Vascular Surgery - Vein stripping of his right leg. - Immunizations Hx Diphtheria, Pertussis, Tetanus Vaccination: Yes Review of Systems - Review of Systems Constitutional: No symptoms reported EENT: No symptoms reported Cardiovascular: No symptoms reported Respiratory: No symptoms reported Gastrointestinal: Abdominal pain, Vomiting, Blood in vomit Genitourinary: No symptoms reported Male Genitourinary: No symptoms reported Musculoskeletal: No symptoms reported Skin: No symptoms reported Hematologic/Lymphatic: No symptoms reported Neurological/Psychological: No symptoms reported Physical Exam - Vital signs Vitals: Temp Pulse Resp BP Pulse Ox 97.8 F 92 20 176/86 H 96 10/24/19 05:14 10/24/19 05:14 10/24/19 05:14 10/24/19 05:14 10/24/19 05:14 - Notes Notes: PHYSICAL EXAMINATION: GENERAL: Well-appearing, well-nourished and in no acute distress. HEAD: Atraumatic, normocephalic. EYES: Pupils equal round and reactive to light, extraocular movements intact, sclera anicteric, conjunctiva are normal. ENT: Nares patent, oropharynx clear without exudates. Moist mucous membranes. NECK: Normal range of motion, supple without lymphadenopathy LUNGS: Breath sounds clear to auscultation bilaterally and equal. No wheezes rales or rhonchi. HEART: Regular rate and rhythm without murmurs ABDOMEN: Soft, distended abdomen. No guarding, no rebound. No masses appreciated. Generalized abdominal tenderness with palpation, more so to the left lower quadrant. Musculoskeletal: Normal range of motion, no pitting or edema. No cyanosis. NEUROLOGICAL: Cranial nerves grossly intact. Normal speech, normal gait. Normal sensory, motor exams PSYCH: Normal mood, normal affect. SKIN: Warm, Dry, normal turgor, no rashes or lesions noted. Course - Re-evaluation Re-evalutation: 10/24/19 14:36 Abnormal findings noted on the abdomen pelvis CT, call placed to Dr. Sevilla, general surgeon production tech, he is currently in a procedure and will come and evaluate the patient according to the nurse who answered his phone. Patient given Ativan for his withdrawal symptoms. Abdomen/Pelvis CT 10/24/19 12:58 IMPRESSION: 1. Prominent fluid-filled appendix. The possibility of a mucocele is not excluded. No definite periappendiceal inflammation identified. 2. The gallbladder is prominent in size as previously noted. Increased density of the contents the gallbladder. The possibility of sludge within the gallbladder cannot be excluded. If indicated gallbladder ultrasound could be obtained 3. Hepatomegaly with marked fatty infiltration of the liver. 10/24/19 15:22 Dr. Sevilla came to the bedside to evaluate the patient. He does not believe this is an acute appendicitis. He believes the patient needs to be transferred to a tertiary facility for upper GI bleed and management of acute alcohol withdrawal. Will initiate transfer at this time. Call placed to [facility]. Awaiting callback. Orders placed for Protonix bolus and Protonix drip. 10/24/19 16:16 Received phone call back from [facility], spoke with Dr. Marsh, hospitalist, she does not think the patient needs transfer to a tertiary facility, she feels that the patient can be managed here at our hospital and even if we do not have GI on-call for the next couple of days he can be managed here. 10/24/19 16:25 Called and spoke with the lead hospitalist, NISHANT Kyle regarding this patient. He also feels it would be most appropriate for the patient to be sent to a tertiary facility. 10/24/19 16:[address] [facility]. Awaiting callback. 10/24/19 17:30 Received phone call back from Dr. Fry at [facility], patient now accepted for transfer to their facility. Currently awaiting bed placement. Patient updated on plan of care. Patient is in agreements with same. Patient currently has Protonix drip infusing. Patient denies any questions at this time. 10/24/19 22:45 Patient reevaluated at this time. Patient reports he is feeling improved. Transport is at the bedside to transport patient to [facility]. Patient stable for transport. - Vital Signs Vital signs: Temp Pulse Resp BP Pulse Ox 97.5 F 110 H 16 166/80 H 96 10/24/19 14:38 10/24/19 14:38 10/24/19 21:35 10/24/19 21:35 10/24/19 21:35 - Laboratory Result Diagrams: 10/24/19 09:26 10/24/19 09:26 Laboratory results interpreted by me: 10/24/19 10/24/19 10/24/19 09:26 09:26 14:28 RDW 15.1 H Carbon Dioxide 18 L Anion Gap 25 H Glucose 172 H Total Protein 9.3 H Albumin 5.2 H Urine Protein >=500 H Urine Ketones 20 H Urine Blood MODERATE H Discharge - Discharge Clinical Impression: ETOH abuse GI bleed Qualifiers: GI bleed type/associated pathology: unspecified gastrointestinal hemorrhage type Qualified Code(s): K92.2 - Gastrointestinal hemorrhage, unspecified Condition: Good Disposition: [facility]
--- NOTE | 2019-10-24 14:27 | RADIOLOGY REPORT (SQ) ---
EXAM DESCRIPTION: CT ABD/PELVIS WITH IV ONLY COMPLETED DATE/TIME: 10/24/2019 1:36 pm REASON FOR STUDY: abd pain, vomiting blood right upper quadrant and left upper quadrant pain. COMPARISON: 09/26/2016. 09/08/2015. TECHNIQUE: CT scan of the abdomen and pelvis performed using helical scanning technique with dynamic intravenous contrast injection. No oral contrast. Images reviewed with lung, soft tissue, and bone windows. Reconstructed coronal and sagittal MPR images reviewed. Delayed images for evaluation of the urinary system also acquired. All images stored on PACS. All CT scanners at this facility use dose modulation, iterative reconstruction, and/or weight based d osing when appropriate to reduce radiation dose to as low as reasonably achievable (ALARA). [facility]: Dose Right [facility]: CareDose [facility]: Dose Right [facility]: Teradose 4D [facility]: [email or web address] CONTRAST TYPE AND DOSE: contrast/concentration: Isovue 350.00 mg/ml; Total Contrast Delivered: 100.0 ml; Total Saline Delivered: 66.2 ml RENAL FUNCTION: Creatinine: 0.92. RADIATION DOSE: CT Rad equipment meets quality standard of care and radiation dose reduction techniq ues were employed. CTDIvol: 19.0 - 20.6 mGy. DLP: 2205 mGy-cm.. LIMITATIONS: None. FINDINGS: LOWER CHEST: Chronic subpleural interstitial changes and pleural thickening. Atherosclero tic coronary calcification. LIVER: Fatty infiltration. The liver is prominent in size measuring 22.1 cm. SPLEEN: No abnormality. PANCREAS: No abnormality. GALLBLADDER: The gallbladder is prominent and demonstrates increased density accentuated by the fatty liver. These findings were present on the prior study. The possibility of sludge or vicarious excr etion of contrast not excluded. ADRENAL GLANDS: No abnormality. RIGHT KIDNEY AND URETER: No abnormality. LEFT KIDNEY AND URETER: No abnormality. AORTA AND VESSELS: Atherosclerotic change of the abdominal aorta and iliac vessels. . No dissection. Renal arteries, SMA, celiac without stenosis. RETROPERITONEUM: No retroperitoneal adenopathy, hemorrhage or masses. BOWEL AND PERITONEAL CAVITY: Findings suggestive of a hiatal hernia. APPENDIX: Since the prior CTs of abdomen and pelvis there has been interval development of a fluid-f illed distended appendix. The possibility of a mucocele could not be excluded. No wall calcificatio n identified. It measures 1.6 cm in transverse diameter. (Image number 67 - 79/98 series 3 axial sc ans and image number [id number] series 601 coronal scans.) No periappendiceal inflammation seen. PELVIS: No mass. No free fluid. URINARY BLADDER: Mildly prominent. PROSTATE AND SEMINAL VESICLES: No abnormality. Small inguinal nodes. Stable left external iliac node BONY STRUCTURES: Previous internal fixation of proximal right femur with old avulsion fractures grea ter trochanter. intramedullary mark in proximal right femur transfixed by a single intertrochanteric screw. Lumbar and dorsal spondylosis. Lumbar scoliosis convex right. OTHER: Inferior vena cava filter with apex of filtered noted just inferior to left renal vein. IMPRESSION: 1. Prominent fluid-filled appendix. The possibility of a mucocele is not excluded. No definite periappendiceal inflammation identified. 2. The gallbladder is prominent in size as previ ously noted. Increased density of the contents the gallbladder. The possibility of sludge within th e gallbladder cannot be excluded. If indicated gallbladder ultrasound could be obtained 3. Hepatome steven with marked fatty infiltration of the liver. COMMENT: . TECHNICAL DOCUMENTATION: JOB ID: [id number] Quality ID # [id number]: Final reports with documentation of one or more dose reduction techniques (e.g., Au tomated exposure control, adjustment of the mA and/or kV according to patient size, use of iterative reconstruction technique) 2010 [employer]- All Rights Reserved Reading location - IP/workstation name: [email or web address]
[2019-10-24] MEDS ORDERED: PIPERACILLIN/TAZOBACTAM 3.375 GM VIAL IV ONE (14:35)
[2019-10-24 14:45] LABS: APPEARANCE,URINE SLIGHTLY-CLOUDY; BILIRUBIN,URINE NEGATIVE (NEGATIVE); COLOR,URINE YELLOW; GLUCOSE, URINE NEGATIVE (NEGATIVE); KETONES,URINE 20 mg/dL (NEGATIVE); LEUKOCYTE ESTERASE,URINE NEGATIVE (NEGATIVE); NITRITE,URINE NEGATIVE (NEGATIVE); PROTEIN,URINE >=500 mg/dL (NEGATIVE); URINE SPECIFIC GRAVITY 1.034; UROBILINOGEN,URINE NEGATIVE mg/dL (<2.0)
[2019-10-24] MEDS ORDERED: RINGERS SOLUTION,LACTATED 1,000 ML IV ONE (14:50)
[2019-10-24] MEDS ORDERED: PANTOPRAZOLE SODIUM 40 MG VIAL IV ONE (15:21)
[2019-10-24] MEDS ORDERED: PANTOPRAZOLE SODIUM 40 MG VIAL IV PRN (15:21)
--- NOTE | 2019-10-24 15:59 | PDOC CONSULTATION ---
Consultation Consult Date: 10/24/19 Provider Consulted: JOHN JIMENEZ Consult reason:: Abdominal pains History of Present Illness History of Present Illness: ERWIN REED III is a 54 year old male with a history of chronic heavy alcoholism for the past 15years with history of diabetes mellitus, hypertension complain of vomiting clear fluid x2 2 AM then this was followed by red blood vomitus. He claims he has been on a drinking binge for the past 3days. He is he did follow complain of abdominal pains after nausea and vomiting. He claims that he now has the shakes and has visual hallucination. He had this before when he had alcohol withdrawal symptoms. He was last in a rehab at [facility] about a month ago Past Medical History Cardiac Medical History: Reports: DVT - Possible DVT, right lower extremity, 1988; took Coumadin for several months, Hyperlipidema, Hypertension Denies: Congestive Heart Failure, Myocardial Infarction, Pulmonary Embolism Pulmonary Medical History: Reports: Asthma - Childhood; has not bothered him in years. Denies: Chronic Obstructive Pulmonary Disease (COPD) Neurological Medical History: Reports: Seizures - From alcohol withdrawal Endocrine Medical History: Reports: Diabetes Mellitus Type 2 Denies: Diabetes Mellitus Type 1, Hyperthyroidism, Hypothyroidism GI Medical History: Reports: Gastroesophageal Reflux Disease Denies: Cirrhosis, Hepatitis Musculoskeltal Medical History: Reports: Arthritis Skin Medical History: Denies: Eczema, Psoriasis Psychiatric Medical History: Reports: Depression Past Surgical History Past Surgical History: Reports: Orthopedic Surgery - R knee R foot R wrist., Vascular Surgery - Vein stripping of his right leg. Social History Smoking Status: Never Smoker Frequency of Alcohol Use: Heavy Hx Recreational Drug Use: No Drugs: None Hx Prescription Drug Abuse: No Family History Family History: Reviewed & Not Pertinent, COPD Parental Family History Reviewed: Yes Children Family History Reviewed: No Sibling(s) Family History Reviewed.: No Medication/Allergy Allergies/Adverse Reactions: Sulfa (Sulfonamide Antibiotics) Allergy (Severe, Verified 10/22/19 15:41) Review of Systems Constitutional: PRESENT: as per HPI - Claims she has been hot and cold Cardiovascular: PRESENT: other - Denies chest pains nor cough Gastrointestinal: PRESENT: abdominal pain, nausea, vomiting Neurological: PRESENT: tremor(s) Psychiatric: PRESENT: hallucinations - Visual Physical Exam Vital Signs: Temp Pulse Resp BP Pulse Ox 97.5 F 110 H 18 185/86 H 97 10/24/19 14:38 10/24/19 14:38 10/24/19 14:38 10/24/19 14:38 10/24/19 14:38 Intake & Output 10/23/19 10/24/19 10/25/19 06:59 06:59 06:59 Intake Total 1000 Balance 1000 Weight 129.274 kg General appearance: PRESENT: obese Head exam: PRESENT: atraumatic Eye exam: PRESENT: conjunctiva pink Mouth exam: PRESENT: dry mucosa Neck exam: PRESENT: full ROM Respiratory exam: PRESENT: decreased breath sounds Cardiovascular exam: PRESENT: RRR Pulses: PRESENT: normal radial pulses Vascular exam: PRESENT: normal capillary refill GI/Abdominal exam: PRESENT: soft, tenderness - Both lower quadrants and left upper quadrant but no rebound tenderness Rectal exam: PRESENT: deferred Extremities exam: PRESENT: full ROM Musculoskeletal exam: PRESENT: ambulatory Neurological exam: PRESENT: alert, oriented to person, oriented to place, oriented to time, oriented to situation Psychiatric exam: PRESENT: appropriate affect Focused psych exam: PRESENT: restlessness - Mild restlessness Skin exam: PRESENT: normal color, warm Results Laboratory Results: 10/24/19 09:26 10/24/19 09:26 10/24/19 10/24/19 10/24/19 09:26 09:26 09:26 WBC 7.2 RBC 5.14 Hgb 14.3 Hct 42.8 MCV 83 MCH 27.9 MCHC 33.5 RDW 15.1 H Plt Count 350 Seg Neutrophils % 72.7 Sodium 142.0 Potassium 3.7 Chloride 99 Carbon Dioxide 18 L Anion Gap 25 H BUN 15 Creatinine 0.92 Est GFR ( Amer) > 60 Glucose 172 H Calcium 9.4 Total Bilirubin 0.5 AST 56 Alkaline Phosphatase 120 Total Protein 9.3 H Albumin 5.2 H Lipase 172.0 Urine Color Urine Appearance Urine pH Ur Specific [place] Urine Protein Urine Glucose (UA) Urine Ketones Urine Blood Urine Nitrite Ur Leukocyte Esterase Urine WBC (Auto) Urine RBC (Auto) Blood Type A POSITIVE Antibody Screen NEGATIVE 10/24/19 14:28 WBC RBC Hgb Hct MCV MCH MCHC RDW Plt Count Seg Neutrophils % Sodium Potassium Chloride Carbon Dioxide Anion Gap BUN Creatinine Est GFR ( Amer) Glucose Calcium Total Bilirubin AST Alkaline Phosphatase Total Protein Albumin Lipase Urine Color YELLOW Urine Appearance SLIGHTLY-CLOUDY Urine pH 6.0 Ur Specific [place] 1.034 Urine Protein >=500 H Urine Glucose (UA) NEGATIVE Urine Ketones 20 H Urine Blood MODERATE H Urine Nitrite NEGATIVE Ur Leukocyte Esterase NEGATIVE Urine WBC (Auto) 1 Urine RBC (Auto) 1 Blood Type Antibody Screen Impressions: Abdomen/Pelvis CT 10/24/19 12:58 IMPRESSION: 1. Prominent fluid-filled appendix. The possibility of a mucocele is not excluded. No definite periappendiceal inflammation identified. 2. The gallbladder is prominent in size as previously noted. Increased density of the contents the gallbladder. The possibility of sludge within the gallbladder cannot be excluded. If indicated gallbladder ultrasound could be obtained 3. Hepatomegaly with marked fatty infiltration of the liver. Assessment & Plan - Diagnosis (1) Abdominal pain Qualifiers: Abdominal location: left upper quadrant Qualified Code(s): R10.12 - Left upper quadrant pain Is this a current diagnosis for this admission?: Yes (2) Alcohol withdrawal Qualifiers: Complication of substance-induced condition: with perceptual disturbance Qualified Code(s): F10.232 - Alcohol dependence with withdrawal with perceptual disturbance Is this a current diagnosis for this admission?: Yes (3) Hypertension Is this a current diagnosis for this admission?: Yes (4) Obesity (BMI 30-39.9) Is this a current diagnosis for this admission?: Yes (5) Diabetes mellitus type 2 in obese Is this a current diagnosis for this admission?: Yes - Time Time Spent: 30 to 50 Minutes - Plan Summary Plan Summary: 54-year-old male diabetic and hypertensive with history of chronic alcoholism maternal alcoholic drinking binge for the past 3 days and at 2 AM today complaining of vomiting that was clear initially x2 and then followed by bloody vomitus and later also with complaint of abdominal pains, tremors and visual hallucinations. He had a last rehab done a month ago at [facility]. Complains also of off and on alternating fever and chills with some difficulty voiding. His abdomen is soft but tender in the left upper quadrant and both lower quadrants but no rebound tenderness. He has some tremors of the hands and appears quite anxious. CTA scan of the abdomen showed possible gallbladder sludge, no definite acute appendicitis but possible mucocele with no inflammation. His white count is normal. Impression: Patient has acute alcoholic withdrawal symptoms with hematemesis. He also has some abdominal pains may be due from the vomiting causing abdominal wall pains. No definite findings of acute appendicitis. Recommendation This patient has multiple complicated problems primarily due to alcohol withdrawal symptoms with upper GI bleed. He needs to be in tertiary facility where he can be watched more closely in an intensive care unit with availability of GI, good intensivists, and the close follow-up by general surgery. Discuss with ER PA who will make arrangement for his transfer.
[2019-10-24 21:52] VITALS: BP 166/80
[2019-10-24] MEDS ORDERED: MORPHINE SULFATE 10 MG/ML INJ IV ONE (22:04)
== END 2019-10-24 22:30 | disposition short-term general hospital (02) ==
LOC: ER 04:59
DX: F10.10 Alcohol abuse, uncomplicated (principal); K92.2 Gastrointestinal hemorrhage, unspecified; J45.909 Unspecified asthma, uncomplicated; E11.9 Type 2 diabetes mellitus without complications; Z86.718 Personal history of other venous thrombosis and embolism; Z79.01 Long term (current) use of anticoagulants; I10 Essential (primary) hypertension
CPT/HCPCS: 96376; 99285; 96361; 96374; 96375; 86900; 86901; 36415; 87040; 86850; 80307; 83690; 85025; 80053; 81001; 74177; J2270; J2060; C9113; J2405; J7030; J7120; J2543